=== PATIENT | female | born 1975 | race Two or more races ===

== ENCOUNTER 2016-04-14 12:07 | Emergency (ER) | payer OTHER ==
[2016-04-14] MEDS ORDERED: NS 1,000 ML IV ONE (12:50)
[2016-04-14] MEDS ORDERED: HYDROmorphONE/DILAUDID 1 MG/ML SYR IVP ONE (12:50)
[2016-04-14] MEDS ORDERED: ONDANSETRON 4 MG/2 ML VIAL IVP ONE (12:50)
[2016-04-14 13:26] LABS: % IMMATURE GRANULYOCYTES 0.2 % (0.0-1.1); ABSOLUTE IMMATURE GRANULOCYTES 0.01 10^3/uL (0.00-0.10); ADD DIFF? NO; ADD MORPH? NO; ADD SCAN? NO; ATYPICAL LYMPHOCYTE FLAG 0 (0-99); FRAGMENT RBC FLAG 0 (0-99); HEMATOCRIT 38.8 % (38.0-47.0); LEFT SHIFT FLG 90 (0-99); LIPEMIA HEMOLYSIS FLAG 90 (0-99); MEAN CELL HEMOGLOBIN 31.6 pg (27.9-34.1); MEAN CELL HEMOGLOBIN CONCENTR. 36.1 g/dL (32.4-36.7); MEAN CELL VOLUME 87.6 fL (81.5-99.8); MEAN PLATELET VOLUME 10.6 fL (8.7-11.7); PLATELET CLUMPS FLAG 10 (0-99); PLATELET COUNT 237 10^3/uL (150-400); RED BLOOD CELL COUNT 4.43 10^6/uL (4.18-5.33); RED CELL DISTRIBUTION WIDTH 12.6 % (11.5-15.2)
[2016-04-14 13:44] LABS: ALANINE AMINOTRANSFERASE 31 IU/L (9-52); ALBUMIN 3.5 g/dL (3.5-5.0); ALKALINE PHOSPHATASE 76 IU/L (38-126); ANION GAP 13 mEq/L (8-16); ASPARTATE AMINOTRANSFERASE 21 IU/L (14-46); BILIRUBIN,TOTAL 0.6 mg/dL (0.1-1.4); BILIRUBIN-UNCONJUGATED 0.6 mg/dL (0.0-1.1); CALCIUM 8.4 mg/dL (8.5-10.4); CARBON DIOXIDE 21 mEq/l (22-31); CHLORIDE 107 mEq/L (97-110); CREATININE 0.4 mg/dL (0.6-1.0); GLOMERULAR FILTRATION RATE > 60; GLUCOSE 101 mg/dL (70-100); POTASSIUM 3.5 mEq/L (3.5-5.2); SODIUM 141 mEq/L (134-144); TOTAL PROTEIN 6.9 g/dL (6.3-8.2)
[2016-04-14 14:49] LABS: COLOR YELLOW; LEUKOCYTE ESTERASE,URINE 1+ (NEGATIVE); NITRITE,URINE NEGATIVE (NEGATIVE)
[2016-04-14 14:51] LABS: BACTERIA TRACE /hpf (NONE SEEN); MUCUS TRACE /lpf (NONE-1+); RBC,URINE 50-182 /hpf (0-3)
--- NOTE | 2016-04-14 15:07 | EDPHY ---
H & P Stated Complaint: N/V/D for 1 day Time Seen by Provider: 04/14/16 12:25 HPI/ROS: Chief complaint: Nausea, vomiting and diarrhea with abdominal pain History of present illness: This is a 40-year-old female who presents to the emergency department for evaluation nausea, vomiting and diarrhea with associated abdominal pain. She reports the onset of symptoms this morning. She reports multiple episodes of vomiting and diarrhea described as nonbloody. She reports diffuse abdominal pain. She denies precipitating factors. She denies alleviating factors. She denies other associated signs or symptoms including no fevers, no urinary symptoms. Review of systems: A 10 point review of systems was obtained and other than described above was negative - Personal History LMP (Females 10-55): 22-28 Days Ago Current Tetanus/Diphtheria Vaccine: Unsure Current Tetanus Diphtheria and Acellular Pertussis (TDAP): Unsure - Medical/Surgical History Hx Asthma: No Hx Chronic Respiratory Disease: No Hx Diabetes: No Hx Cardiac Disease: No Hx Renal Disease: No Hx Cirrhosis: No Hx Alcoholism: No Hx HIV/AIDS: No Hx Splenectomy or Spleen Trauma: No Other PMH: hypothyroidism - Social History Smoking Status: Never smoked - Physical Exam Exam: General Appearance: Alert, no distress. Eyes: Pupils equal and round no pallor or injection. ENT, Mouth: Mucous membranes moist. Respiratory: There are no retractions, lungs are clear to auscultation. Cardiovascular: Regular rate and rhythm. Gastrointestinal: Abdomen is soft and non tender, no masses, bowel sounds normal. Genitourinary: No CVA tenderness. Neurological: Alert and oriented. Strength and sensation intact and symmetrical. Skin: Warm and dry, no rashes. Musculoskeletal: Neck is supple non tender. Extremities are symmetrical, full range of motion. Psychiatric: Patient is oriented X 3, there is no agitation. Constitutional: Initial Vital Signs Temperature (C) 36.9 C 04/14/16 12:10 Heart Rate 104 H 04/14/16 12:10 Respiratory Rate 16 04/14/16 12:10 Blood Pressure 138/90 H 04/14/16 12:10 O2 Sat (%) 95 04/14/16 12:10 O2 Delivery Mode Room Air Allergies/Adverse Reactions: No Known Allergies Allergy (Verified 06/05/15 03:04) Home Medications: Medication Instructions Recorded Levothyroxine [Synthroid 100 mcg 100 mcg PO DAILY06 04/11/14 (RX)] Hydrocodone/APAP 5/325 [[facility] 1 - 2 tab PO Q4H PRN #10 tab 06/05/15 5/325 (RX)] Cephalexin [Keflex] 500 mg PO QID 10 Days 04/14/16 Ondansetron Odt [Zofran Odt 4 mg 4 mg PO Q4 #10 tab 04/14/16 (*)] Medical Decision Making - Diagnostics Imaging: CT scan of the abdomen pelvis without evidence of kidney stones, small lesion on left kidney noted ED Course/Re-evaluation: Patient seen under the supervision of my secondary supervising physician Dr. Sara Cabrera. Patient presents to the emergency department with abdominal pain, nausea, vomiting and diarrhea. Patient is nontoxic. Afebrile and vital signs are stable. Laboratory studies largely unremarkable. Urinalysis concerning for a urinary tract infection. CT scan of the abdomen and pelvis without acute findings. Patient has been symptomatically treated with improvement in symptoms. She is started on antibiotics for suspected urinary tract infection. Patient is tolerating oral challenges. She will be discharged home. Home care is discussed. She is asked to follow up with a primary care doctor this week for recheck. Return precautions are given. Patient voiced understanding and agreement with plan. Differential Diagnosis: Included but not limited to gastritis, gastroenteritis, biliary tract disease, pancreatitis, colitis, urinary tract disease, with associated complications - Data Points Laboratory Results: Laboratory Results 04/14/16 13:17 04/14/16 13:17 04/14/16 04/14/16 14:38 13:17 WBC 5.23 10^3/uL (3.80-9.50) RBC 4.43 10^6/uL (4.18-5.33) Hgb 14.0 g/dL (12.6-16.3) Hct 38.8 % (38.0-47.0) MCV 87.6 fL (81.5-99.8) MCH 31.6 pg (27.9-34.1) MCHC 36.1 g/dL (32.4-36.7) RDW 12.6 % (11.5-15.2) Plt Count 237 10^3/uL (150-400) MPV 10.6 fL (8.7-11.7) Neut % (Auto) 86.7 H % (39.3-74.2) Lymph % (Auto) 7.3 L % (15.0-45.0) [place] % (Auto) 5.4 % (4.5-13.0) Eos % (Auto) 0.2 L % (0.6-7.6) Baso % (Auto) 0.2 L % (0.3-1.7) Nucleat RBC Rel Count 0.0 % (0.0-0.2) Absolute Neuts (auto) 4.54 10^3/uL (1.70-6.50) Absolute Lymphs (auto) 0.38 L 10^3/uL (1.00-3.00) Absolute Monos (auto) 0.28 L 10^3/uL (0.30-0.80) Absolute Eos (auto) 0.01 L 10^3/uL (0.03-0.40) Absolute Basos (auto) 0.01 L 10^3/uL (0.02-0.10) Absolute Nucleated RBC 0.00 10^3/uL (0-0.01) Immature Gran % 0.2 % (0.0-1.1) Immature Gran # 0.01 10^3/uL (0.00-0.10) Sodium 141 mEq/L (134-144) Potassium 3.5 mEq/L (3.5-5.2) Chloride 107 mEq/L (97-110) Carbon Dioxide 21 L mEq/l (22-31) Anion Gap 13 mEq/L (8-16) BUN 11 mg/dL (7-23) Creatinine 0.4 L mg/dL (0.6-1.0) Estimated GFR > 60 Glucose 101 H mg/dL (70-100) Calcium 8.4 L mg/dL (8.5-10.4) Total Bilirubin 0.6 mg/dL (0.1-1.4) Conjugated Bilirubin 0.0 mg/dL (0.0-0.5) Unconjugated Bilirubin 0.6 mg/dL (0.0-1.1) AST 21 IU/L (14-46) ALT 31 IU/L (9-52) Alkaline Phosphatase 76 IU/L (38-126) Total Protein 6.9 g/dL (6.3-8.2) Albumin 3.5 g/dL (3.5-5.0) Lipase 60.0 IU/L (23-300) Beta HCG, Qual NEGATIVE Urine Color YELLOW Urine Appearance MODERATELY TURBID Urine pH 6.0 (5.0-7.5) Ur Specific [place] 1.028 (1.002-1.030) Urine Protein NEGATIVE (NEGATIVE) Urine Ketones NEGATIVE (NEGATIVE) Urine Blood 3+ H (NEGATIVE) Urine Nitrate NEGATIVE (NEGATIVE) Urine Bilirubin NEGATIVE (NEGATIVE) Urine Urobilinogen NEGATIVE EU (0.2-1.0) Ur Leukocyte Esterase 1+ H (NEGATIVE) Urine RBC 50-182 H /hpf (0-3) Urine WBC 3-5 H /hpf (0-3) Ur Epithelial Cells 2+ H /lpf (NONE-1+) Urine Bacteria TRACE H /hpf (NONE SEEN) Urine Mucus TRACE /lpf (NONE-1+) Ur Culture Indicated? INDICATED H (NI) Urine Glucose NEGATIVE (NEGATIVE) Medications Given: Discontinued Medications Acetaminophen (Tylenol) 1,000 mg PO EDNOW ONE Stop: 04/14/16 16:42 Last Admin: 04/14/16 16:46 Dose: 1,000 mg Hydromorphone HCl (Dilaudid) 0.5 mg IVP EDNOW ONE Stop: 04/14/16 12:51 Last Admin: 04/14/16 13:20 Dose: 0.5 mg Sodium Chloride (Ns) 1,000 mls @ 0 mls/hr IV ONCE ONE PRN Reason: Wide Open Stop: 04/14/16 12:51 Last Admin: 04/14/16 13:15 Dose: 1,000 mls Ceftriaxone Sodium/Dextrose (Rocephin 1 Gm (Premix)) 50 mls @ 100 mls/hr IV EDNOW ONE PRN Reason: Protocol Stop: 04/14/16 15:47 Last Admin: 04/14/16 16:05 Dose: 50 mls Ondansetron HCl (Zofran) 4 mg IVP EDNOW ONE Stop: 04/14/16 12:51 Last Admin: 04/14/16 13:20 Dose: 4 mg Departure - Departure Disposition: Home, Routine, Self-Care Clinical Impression: UTI (urinary tract infection) Qualifiers: Urinary tract infection type: site unspecified Hematuria presence: with hematuria Qualifier Code: (N39.0) Urinary tract infection, site not specified Condition: Good Instructions: Urinary Tract Infection in Women (ED) Additional Instructions: Follow-up with your primary care doctor this week for recheck Please also follow up with your primary care doctor to arrange a follow-up ultrasound of the lesion seen on your kidney on CT scan Take all antibiotics as prescribed until finished even feeling better If symptoms worsen or new symptoms develop return to the emergency department for recheck - Dot simon dru de seguimiento con garcia doctor esta semana. - Por favor tambien hable con garcia doctor sobre un ultrasonido por la lecion en el priti mostrado en la tomografia - Maddock todo el antibiotico recetado aun si se siente mejor. - Si los sintomas empeoran o si desarrolla nuevos, regrese a la fernando de emergencia. Referrals: [place],. [Primary Care Provider] - As per Instructions [facility] [Outside] - As per Instructions Prescriptions: Cephalexin [Keflex] 500 mg PO QID 10 Days Ondansetron Odt [Zofran Odt 4 mg (*)] 4 mg PO Q4 #10 tab Print Language: Greek
--- NOTE | 2016-04-14 16:32 | CT ---
Unenhanced CT Scan of the Abdomen and Pelvis (Renal Stone Protocol) Clinical History: 40-year-old female with abdominal pain and nausea and vomiting since 1:00 a.m. catina neumann. The patient denies any prior abdominal surgery. On urinalysis, the patient had pyuria and hematuri a. Technique: A multidetector unenhanced helical CT scan was obtained from lung bases inferiorly through the proximal femora, with images reformatted at 5.00 and 1.50 mm increments, and reviewed at a varie ty of window and level settings. Parasagittal and paracoronal reconstructed images were reviewed on w orkstation. The DFOV is 41.3 cm. A dose reduction protocol was used. Comparison Study: None. Findings: Unenhanced CT Scan of the Abdomen: There are some minor dependent changes seen posteriorly. There is no pleural or pericardial effusion. There are no hepatic, pancreatic, splenic, adrenal, renal, or ur eteral calculi. There is an exophytic 9-mm hypodensity off of the posterosuperior left kidney on seri es 3 image 28, with a Hounsfield unit measurement of 11. While this may merely reflect a small simple cyst, this was an unenhanced study and follow-up sonography is recommended. There is no hydronephros is or perinephric fluid. There are some shotty subcentimeter periaortic and aortocaval lymph nodes, n ot pathologically enlarged. There is no ascites or pneumoperitoneum. There is no evidence of a mechan ical bowel obstruction. The abdominal aorta and IVC are normal in caliber. The osseous structures are age-appropriate. Unenhanced CT Scan of the Pelvis: The retrocecal appendix is identified on axial series 4, images 20 4-222, and is normal. The uterus is midline. The urinary bladder is only partially distended. There i s no evidence of distal ureterolithiasis or urinary bladder calculus. There is a small amount of free fluid in the pelvic cul-de-sac. The osseous structures are age-appropriate. Impression: 1. There is no evidence of nephrolithiasis or obstructive uropathy. There is a 9-mm hypodensity on th e posterior aspect of the left kidney, which probably represents a tiny cyst; however, confirmation w ith sonography is suggested. 2. Normal appearance of the appendix. 3. Small amount of free fluid in the pelvic cul-de-sac. Results were discussed with Miquel Blake PA-C. A test result has been communicated to a licensed care provider and documented in [employer], 4:21:24 PM , 04/14/2016, [employer] Message ID [id number]. Attention: This CT examination is specifically designed to evaluate patients who are clinically susp ected of having acute obstructive uropathy. This examination does not use radiographic contrast, and as such, provides only a limited evaluation of the abdomen, pelvis, and retroperitoneum. If there i s further clinical suspicion for pathological conditions other than obstructive uropathy, a complete CT evaluation of the abdomen and pelvis utilizing intravenous, oral, and rectal contrast should be co nsidered.
[2016-04-14] MEDS ORDERED: ACETAMINOPHEN 500 MG TAB ONE (16:39)
[2016-04-14] MEDS ORDERED: ACETAMINOPHEN 500 MG TAB PO ONE (16:41)
[2016-04-14 16:48] VITALS: BP 111/74; PULSE 103; RESP 18; TEMP 100.8; O2SAT 96
== END 2016-04-14 16:48 | disposition home or self-care (01) ==
DX: N39.0 Urinary tract infection, site not specified (principal); B96.89 Other specified bacterial agents as the cause of diseases classified elsewhere
CPT/HCPCS: 96365; J0696; J1170; J2405

== ENCOUNTER 2016-12-28 18:21 | Emergency (ER) | payer SELFPAY ==
[2016-12-28 18:27] VITALS: PULSE 86
--- NOTE | 2016-12-28 18:43 | CPEKG ---
Heart Rate: 84 RR Interval: 714 P-R Interval: 180 QRSD Interval: 88 QT Interval: 356 QTC Interval: 421 P [place]: 13 QRS [place]: 26 T Wave [place]: 10 EKG Severity - NORMAL ECG - EKG Impression: SINUS RHYTHM Electronically Signed By: Fabiola Cagle 28-Dec-2016 21:10:04
--- NOTE | 2016-12-28 18:45 | EDPHY ---
HPI/HX/ROS/PE/MDM Narrative: CHIEF COMPLAINT: Chest pain, nausea, vomiting HISTORY OF PRESENT ILLNESS: The patient is a 41 y/o female who complains of chest pain and vomiting this evening. Around 10:00, 8.5 hours ago, she felt dizzy for about a minute and thought she might faint. When she came home from work she felt very hot. She was eating dinner this evening, she reports feeling soundly on well, her ears got warm, she had chest pain in the left side, nausea, and 1 on an vomited. Family thought she looked pale. She does not feel nauseous now and is comfortable while lying down. There is still mild pain in her chest when she breathes. No history of hypertension diabetes. Denies history of gallbladder problems, DVT, PE, familial history of CAD, or history of smoking. She reports feeling otherwise well prior to the events. No fever, chills, shortness of breath, palpitations, diarrhea, urinary complaints, headache, lightheadedness. Daughter at bedside translated for HPI and physical exam. REVIEW OF SYSTEMS: Aside from elements discussed in the HPI, a comprehensive 10-point review of systems was reviewed and is negative. PAST MEDICAL HISTORY: Hypothyroidism, kidney stone in March that did not pass SOCIAL HISTORY: Daughter at bedside, nonsmoker VITAL SIGNS: Reviewed by me GENERAL: Well-developed, well-nourished, resting comfortably in no respiratory distress. HEENT: Atraumatic. Eyes: No icterus, no injection. Mouth: moist mucous membranes. No erythema or lesions. Neck: supple with no adenopathy. LUNGS: Clear to auscultation bilaterally, no wheezes, rhonchi or rales. CARDIAC: Hypertensive (174/125). Regular rate and rhythm, no rubs, murmurs or gallops. ABDOMEN: Soft, nontender, nondistended, bowel sounds normal. BACK: No CVA tenderness. EXTREMITIES: No trauma. No edema. Range of motion is normal throughout. NEURO: Alert and oriented, grossly nonfocal. SKIN: Warm and dry, no rash. PSYCHIATRIC: Normal mentation, no agitation. Portions of this note were transcribed by a emergency medical technician/driver. I personally performed a history, physical exam, medical decision making, and confirmed accuracy of information the transcribed note. ED Course: The patient is a 41 y/o female who presents for left-sided chest pain and vomiting this evening. She is feeling more comfortable now. 12-LEAD EKG: Please see the full report in [employer]. My interpretation: Normal sinus rhythm with rate of 84. Evaluation emergency department was remarkable for elevated blood pressure on arrival. Laboratory testing was normal. Including a troponin. On re-examination the patient is resting comfortably. Her blood pressure has decreased, on my examination is 153/ 98. She reports feeling well. She is laughing and conversant with her family. Patient's heart score is a 0. I believe she is low risk. Patient was discharged to follow up with her primary care physician as well as with the sales market leader. Return precautions discussed; patient is comfortable with this plan. MDM: After history and physical examination, the differential for symptom complex was considered, including but not limited to, myocardial ischemia, acute coronary syndrome, esophageal reflux, GERD, biliary colic. - Data Points Imaging Results: Imaging Impressions Chest X-Ray 12/28/16 18:48 Impression: There is no acute intrathoracic abnormality identified. Imaging: I viewed and interpreted images myself Laboratory Results: Laboratory Results 12/28/16 18:58 12/28/16 18:58 12/28/16 12/28/16 12/28/16 18:58 18:58 18:58 WBC 6.93 10^3/uL 10^3/uL (3.80-9.50) RBC 4.59 10^6/uL 10^6/uL (4.18-5.33) Hgb 14.3 g/dL g/dL (12.6-16.3) Hct 40.6 % % (38.0-47.0) MCV 88.5 fL fL (81.5-99.8) MCH 31.2 pg pg (27.9-34.1) MCHC 35.2 g/dL g/dL (32.4-36.7) RDW 12.4 % % (11.5-15.2) Plt Count 267 10^3/uL 10^3/uL (150-400) MPV 11.1 fL fL (8.7-11.7) Neut % (Auto) 65.1 % % (39.3-74.2) Lymph % (Auto) 25.7 % % (15.0-45.0) [place] % (Auto) 6.1 % % (4.5-13.0) Eos % (Auto) 2.3 % % (0.6-7.6) Baso % (Auto) 0.4 % % (0.3-1.7) Nucleat RBC Rel Count 0.0 % % (0.0-0.2) Absolute Neuts (auto) 4.51 10^3/uL 10^3/uL (1.70-6.50) Absolute Lymphs (auto) 1.78 10^3/uL 10^3/uL (1.00-3.00) Absolute Monos (auto) 0.42 10^3/uL 10^3/uL (0.30-0.80) Absolute Eos (auto) 0.16 10^3/uL 10^3/uL (0.03-0.40) Absolute Basos (auto) 0.03 10^3/uL 10^3/uL (0.02-0.10) Absolute Nucleated RBC 0.00 10^3/uL 10^3/uL (0-0.01) Immature Gran % 0.4 % % (0.0-1.1) Immature Gran # 0.03 10^3/uL 10^3/uL (0.00-0.10) Sodium 137 mEq/L mEq/L (134-144) Potassium 3.8 mEq/L mEq/L (3.5-5.2) Chloride 102 mEq/L mEq/L (97-110) Carbon Dioxide 26 mEq/l mEq/l (22-31) Anion Gap 9 mEq/L mEq/L (8-16) BUN 16 mg/dL mg/dL (7-23) Creatinine 0.7 mg/dL mg/dL (0.6-1.0) Estimated GFR > 60 Glucose 92 mg/dL mg/dL (70-100) Calcium 9.6 mg/dL mg/dL (8.5-10.4) Total Bilirubin 0.3 mg/dL mg/dL (0.1-1.4) Conjugated Bilirubin 0.1 mg/dL mg/dL (0.0-0.5) Unconjugated Bilirubin 0.2 mg/dL mg/dL (0.0-1.1) AST 24 IU/L IU/L (14-46) ALT 34 IU/L IU/L (9-52) Alkaline Phosphatase 107 IU/L IU/L (38-126) Troponin I < 0.012 ng/mL ng/mL (0.000-0.034) Total Protein 8.2 g/dL g/dL (6.3-8.2) Albumin 4.3 g/dL g/dL (3.5-5.0) Lipase 168 IU/L IU/L (23-300) Beta HCG, Qual NEGATIVE General Time Seen by Provider: 12/28/16 18:30 Initial Vital Signs: Initial Vital Signs Temperature (C) 36.4 C 12/28/16 18:24 Heart Rate 86 12/28/16 18:24 Respiratory Rate 20 12/28/16 18:24 Blood Pressure 174/125 H 12/28/16 18:24 O2 Sat (%) 97 12/28/16 18:24 O2 Delivery Mode Room Air Allergies/Adverse Reactions: No Known Allergies Allergy (Verified 12/28/16 18:23) Home Medications: Medication Instructions Recorded Levothyroxine [Synthroid 100 mcg 100 mcg PO DAILY06 04/11/14 (RX)] Departure - Departure Disposition: Home, Routine, Self-Care Clinical Impression: Atypical chest pain Chest pain Qualifiers: Chest pain type: other chest pain Qualified Code(s): R07.89 - Other chest pain Condition: Good Instructions: Chest Pain (ED) Additional Instructions: Based upon the testing done in the Emergency Department today we see no evidence of a heart attack. We are unable to fully exclude coronary artery disease based upon the testing available in the Emergency Department. For this reason, we would like you to be seen by cardiology and/or your primary care physician for consideration of additional testing within the next 3 days. You also should have your blood pressure recheck. Please contact the sales market leader you have been referred to schedule this appointment as soon as possible. Their offices are typically open from 8:30am-5pm M-F. Please return to the Emergency Department immediately for any recurrent chest pain, difficulty breathing or other concerns. Referrals: Jerman Lindsay MD [Medical Doctor] - As per Instructions [facility],. [Clinic] - As per Instructions Report Scribed for: Fabiola Cagle Report Scribed by: Cristina Ron Date of Report: 12/28/16 Time of Report: 18:32
[2016-12-28 19:12] LABS: % IMMATURE GRANULYOCYTES 0.4 % (0.0-1.1); ABSOLUTE IMMATURE GRANULOCYTES 0.03 10^3/uL (0.00-0.10); ADD DIFF? NO; ADD MORPH? NO; ADD SCAN? NO; ATYPICAL LYMPHOCYTE FLAG 30 (0-99); FRAGMENT RBC FLAG 0 (0-99); HEMATOCRIT 40.6 % (38.0-47.0); HEMOGLOBIN 14.3 g/dL (12.6-16.3); LEFT SHIFT FLG 0 (0-99); LIPEMIA HEMOLYSIS FLAG 90 (0-99); MEAN CELL HEMOGLOBIN 31.2 pg (27.9-34.1); MEAN CELL HEMOGLOBIN CONCENTR. 35.2 g/dL (32.4-36.7); MEAN CELL VOLUME 88.5 fL (81.5-99.8); MEAN PLATELET VOLUME 11.1 fL (8.7-11.7); PLATELET CLUMPS FLAG 0 (0-99); PLATELET COUNT 267 10^3/uL (150-400); RED BLOOD CELL COUNT 4.59 10^6/uL (4.18-5.33); RED CELL DISTRIBUTION WIDTH 12.4 % (11.5-15.2)
[2016-12-28 19:23] LABS: ALANINE AMINOTRANSFERASE 34 IU/L (9-52); ALBUMIN 4.3 g/dL (3.5-5.0); ALKALINE PHOSPHATASE 107 IU/L (38-126); ANION GAP 9 mEq/L (8-16); ASPARTATE AMINOTRANSFERASE 24 IU/L (14-46); BILIRUBIN,TOTAL 0.3 mg/dL (0.1-1.4); BILIRUBIN-CONJUGATED 0.1 mg/dL (0.0-0.5); BILIRUBIN-UNCONJUGATED 0.2 mg/dL (0.0-1.1); CALCIUM 9.6 mg/dL (8.5-10.4); CARBON DIOXIDE 26 mEq/l (22-31); CHLORIDE 102 mEq/L (97-110); CREATININE 0.7 mg/dL (0.6-1.0); GLOMERULAR FILTRATION RATE > 60; GLUCOSE 92 mg/dL (70-100); POTASSIUM 3.8 mEq/L (3.5-5.2); SODIUM 137 mEq/L (134-144); TOTAL PROTEIN 8.2 g/dL (6.3-8.2)
[2016-12-28 19:34] LABS: TROPONIN I < 0.012 ng/mL (0.000-0.034)
[2016-12-28 20:29] VITALS: BP 159/105; RESP 16; TEMP 97.9; O2SAT 96
== END 2016-12-28 20:29 | disposition home or self-care (01) ==
DX: R07.89 Other chest pain (principal)

== ENCOUNTER 2017-04-11 18:08 | Emergency (ER) | payer OTHER ==
--- NOTE | 2017-04-11 18:40 | EDPHY ---
H & P Time Seen by Provider: 04/11/17 18:20 HPI/ROS: Chief complaint. Nausea vomiting HPI. 41-year-old female presents with 1 day history of nausea vomiting and 1 episode of diarrhea. She has dysuria and left flank pain. She has had similar symptoms about 1 year ago when she had pyelonephritis. She has no chest pain or shortness of breath. No fever. She complains of left flank pain. ROS Constitutional. no fever/chills, no weakness Eyes. no problems with vision ENT. no sore throat, no nasal drainage Cardiovascular. no chest pain Respiratory. no shortness of breath, no cough Abdominal. Left flank pain with nausea vomiting . Painful urination MS. no calf pain/swelling, no neck/back pain, no joint pain Skin. no rash Lymph. no swollen glands Neuro. no headache, no dizziness, no difficulty walking or with speech Past Medical/Surgical History: Hypothyroid Social History: , nonsmoker, no alcohol Smoking Status: Never smoked Physical Exam: General Appearance: Alert pleasant well-developed female mild to moderate distress vital signs are stable Eyes: Pupils equal and round no pallor or injection. ENT, Mouth: Mucous membranes are moist. Respiratory: There are no retractions, lungs are clear to auscultation. Cardiovascular: Regular rate and rhythm. Gastrointestinal: Abdomen is soft tender in the left flank area. No masses. No organomegaly. Normal bowel sounds Neurological: Awake and alert, sensory and motor exams grossly normal. Skin: Warm and dry, no rashes. Musculoskeletal: Neck is supple nontender. Extremities symmetrical, full range of motion. Psychiatric: Patient is oriented X 3, there is no agitation. Constitutional: Initial Vital Signs Temperature (C) 36.7 C 04/11/17 18:12 Heart Rate 96 04/11/17 18:12 Respiratory Rate 18 04/11/17 18:12 Blood Pressure 132/88 H 04/11/17 18:12 O2 Sat (%) 97 04/11/17 18:12 O2 Delivery Mode Room Air Allergies/Adverse Reactions: No Known Allergies Allergy (Verified 12/28/16 18:23) Home Medications: Medication Instructions Recorded Levothyroxine [Synthroid 100 mcg 100 mcg PO DAILY06 04/11/14 (RX)] Cephalexin [Keflex (*)] 500 mg PO TID #21 cap 01/12/18 Medical Decision Making - Diagnostics Imaging Results: CT abdomen and pelvis without IV contrast shows no evidence for kidney stone Procedures: IV normal saline. Morphine for pain. Zofran for nausea ED Course/Re-evaluation: Re-examination at 8:10 p.m. patient is stable. Her pain is well controlled. She and I discussed laboratory evaluation and recommendation for CT. She expresses understanding and agreement Differential Diagnosis: I considered pyelonephritis, urinary tract infection, kidney stone - Data Points Laboratory Results: Laboratory Results 04/11/17 19:16 04/11/17 18:40 04/11/17 04/11/17 04/11/17 19:16 18:49 18:40 WBC 8.82 10^3/uL 10^3/uL (3.80-9.50) RBC 4.54 10^6/uL 10^6/uL (4.18-5.33) Hgb 14.2 g/dL g/dL (12.6-16.3) Hct 40.1 % % (38.0-47.0) MCV 88.3 fL fL (81.5-99.8) MCH 31.3 pg pg (27.9-34.1) MCHC 35.4 g/dL g/dL (32.4-36.7) RDW 12.4 % % (11.5-15.2) Plt Count 239 10^3/uL 10^3/uL (150-400) MPV 10.6 fL fL (8.7-11.7) Neut % (Auto) 88.2 % H % (39.3-74.2) Lymph % (Auto) 6.6 % L % (15.0-45.0) [place] % (Auto) 4.0 % L % (4.5-13.0) Eos % (Auto) 0.7 % % (0.6-7.6) Baso % (Auto) 0.2 % L % (0.3-1.7) Nucleat RBC Rel Count 0.0 % % (0.0-0.2) Absolute Neuts (auto) 7.78 10^3/uL H 10^3/uL (1.70-6.50) Absolute Lymphs (auto) 0.58 10^3/uL L 10^3/uL (1.00-3.00) Absolute Monos (auto) 0.35 10^3/uL 10^3/uL (0.30-0.80) Absolute Eos (auto) 0.06 10^3/uL 10^3/uL (0.03-0.40) Absolute Basos (auto) 0.02 10^3/uL 10^3/uL (0.02-0.10) Absolute Nucleated RBC 0.00 10^3/uL 10^3/uL (0-0.01) Immature Gran % 0.3 % % (0.0-1.1) Immature Gran # 0.03 10^3/uL 10^3/uL (0.00-0.10) Sodium Potassium Chloride Carbon Dioxide Anion Gap BUN Creatinine Estimated GFR Glucose Calcium Beta HCG, Qual NEGATIVE Urine Color Urine Appearance Urine pH Ur Specific [place] Urine Protein Urine Ketones Urine Blood Urine Nitrate Urine Bilirubin Urine Urobilinogen Ur Leukocyte Esterase Urine RBC Cancelled Urine WBC Cancelled Ur Epithelial Cells Cancelled Ur Renal Epithelial Cell Cancelled Urine Crystals Cancelled Ammonium Urate Crystals Cancelled Calcium Carbonate Cryst Cancelled Calcium Phosphate Cryst Cancelled Calcium Oxalate Crystal Cancelled Leucine Crystals Cancelled Cystine Crystals Cancelled Uric Acid Crystals Cancelled Triple Phos Crystals Cancelled Sulfonamide Crystals Cancelled Cholesterol Crystals Cancelled Tyrosine Crystals Cancelled Bilirubin Crystals Cancelled Amorphous Sediment Cancelled Urine Bacteria Cancelled Epithelial Casts Cancelled Fatty Casts Cancelled Hyaline Casts Cancelled Granular Casts Cancelled Waxy Casts Cancelled Broad Casts Cancelled RBC Casts Cancelled WBC Casts Cancelled Urine Mucus Cancelled Urine Trichomonas Cancelled Urine Yeast Cancelled Urine Sperm Cancelled Ur Oval Fat Bodies Cancelled Ur Free Fat Droplets Cancelled Urine Glucose Urine Comment Cancelled 04/11/17 04/11/17 04/11/17 18:40 18:40 16:40 WBC REJ RBC TNP Hgb TNP Hct TNP MCV TNP MCH TNP MCHC TNP RDW TNP Plt Count TNP MPV TNP Neut % (Auto) TNP Lymph % (Auto) TNP [place] % (Auto) TNP Eos % (Auto) TNP Baso % (Auto) TNP Nucleat RBC Rel Count TNP Absolute Neuts (auto) TNP Absolute Lymphs (auto) TNP Absolute Monos (auto) TNP Absolute Eos (auto) TNP Absolute Basos (auto) TNP Absolute Nucleated RBC TNP Immature Gran % TNP Immature Gran # TNP Sodium 139 mEq/L mEq/L (135-145) Potassium 4.3 mEq/L mEq/L (3.5-5.2) Chloride 106 mEq/L mEq/L (97-110) Carbon Dioxide 20 mEq/l L mEq/l (22-31) Anion Gap 13 mEq/L mEq/L (8-16) BUN 11 mg/dL mg/dL (7-23) Creatinine 0.5 mg/dL L mg/dL (0.6-1.0) Estimated GFR > 60 Glucose 92 mg/dL mg/dL (70-100) Calcium 9.4 mg/dL mg/dL (8.5-10.4) Beta HCG, Qual Urine Color YELLOW Urine Appearance MODERATELY TURBID Urine pH 5.0 (5.0-7.5) Ur Specific [place] 1.014 (1.002-1.030) Urine Protein NEGATIVE (NEGATIVE) Urine Ketones NEGATIVE (NEGATIVE) Urine Blood 3+ H (NEGATIVE) Urine Nitrate NEGATIVE (NEGATIVE) Urine Bilirubin NEGATIVE (NEGATIVE) Urine Urobilinogen NEGATIVE EU EU (0.2-1.0) Ur Leukocyte Esterase 2+ H (NEGATIVE) Urine RBC 10-15 /hpf H /hpf (0-3) Urine WBC 3-5 /hpf H /hpf (0-3) Ur Epithelial Cells 4+ /lpf H /lpf (NONE-1+) Ur Renal Epithelial Cell Urine Crystals Ammonium Urate Crystals Calcium Carbonate Cryst Calcium Phosphate Cryst Calcium Oxalate Crystal Leucine Crystals Cystine Crystals Uric Acid Crystals Triple Phos Crystals Sulfonamide Crystals Cholesterol Crystals Tyrosine Crystals Bilirubin Crystals Amorphous Sediment Urine Bacteria TRACE /hpf H /hpf (NONE SEEN) Epithelial Casts Fatty Casts Hyaline Casts Granular Casts Waxy Casts Broad Casts RBC Casts WBC Casts Urine Mucus TRACE /lpf /lpf (NONE-1+) Urine Trichomonas Urine Yeast Urine Sperm Ur Oval Fat Bodies Ur Free Fat Droplets Urine Glucose NEGATIVE (NEGATIVE) Urine Comment Medications Given: Discontinued Medications Sodium Chloride (Ns) 1,000 mls @ 0 mls/hr IV EDNOW ONE; Wide Open PRN Reason: Protocol Stop: 04/11/17 18:49 Last Admin: 04/11/17 19:04 Dose: 1,000 mls Morphine Sulfate (Morphine) 4 mg IVP EDNOW ONE Stop: 04/11/17 18:49 Last Admin: 04/11/17 19:04 Dose: 4 mg Ondansetron HCl (Zofran) 4 mg IVP EDNOW ONE Stop: 04/11/17 18:49 Last Admin: 04/11/17 19:04 Dose: 4 mg Departure - Departure Disposition: Home, Routine, Self-Care Clinical Impression: Acute pyelonephritis Condition: Good Instructions: Kidney Infection (ED) Additional Instructions: Drink plenty of fluids and stay hydrated. Ibuprofen 600 mg every 6 hr for discomfort. Hydrocodone in addition 1 pill every 4-6 hours for discomfort. Cephalexin is antibiotic. Return for worsening symptoms. Recheck in 2 days if not improved Referrals: NONE *PRIMARY CARE P,. [Primary Care Provider] - As per Instructions [facility] [Outside] - 2-3 days, if not improved Prescriptions: Cephalexin [Keflex (*)] 500 mg PO TID #21 cap
[2017-04-11] MEDS ORDERED: NS 1,000 ML IV ONE (18:48)
[2017-04-11] MEDS ORDERED: ONDANSETRON 4 MG/2 ML VIAL IVP ONE (18:48)
[2017-04-11 19:22] LABS: PLATELET COUNT 239 10^3/uL (150-400)
[2017-04-11] MEDS ORDERED: HYDROCOD/APAP 5/325 PREPACK#6 BTL TAKEHOME ONE (21:35)
[2017-04-11] MEDS ORDERED: CEPHALEXIN 500MG PREPACK#4 BTL TAKEHOME ONE (21:35)
[2017-04-11 22:10] VITALS: BP 137/87; PULSE 87; RESP 20; TEMP 98.2; O2SAT 100
== END 2017-04-11 22:10 | disposition home or self-care (01) ==
DX: N10 Acute pyelonephritis (principal); B96.89 Other specified bacterial agents as the cause of diseases classified elsewhere; E86.9 Volume depletion, unspecified
CPT/HCPCS: 96374; J2405

== ENCOUNTER 2018-01-08 19:27 | Emergency (ER) | payer MEDICAID, OTHER ==
[2018-01-08] MEDS ORDERED: NS 1,000 ML IV ONE (19:43)
[2018-01-08] MEDS ORDERED: HYDROmorphONE/DILAUDID 2 MG/ML INJ IVP ONE (19:53)
[2018-01-08] MEDS ORDERED: ONDANSETRON 4 MG/2 ML VIAL IVP ONE (19:53)
--- NOTE | 2018-01-08 20:01 | EDPHY ---
H & P Time Seen by Provider: 01/08/18 19:42 HPI/ROS: HPI Nausea, left-sided abdominal pain. 42-year-old female by private vehicle with and daughter. This patient reports that since 6:00 a.m. She has had pain in her left mid abdomen and upper abdomen with radiation to the left flank. She describes this as a burning and aching sensation. She has had associated nausea but no vomiting. She also reports feeling chilled. She denies any diarrhea. No bloody or melenic stool. She denies any urinary complaints or gross hematuria. Last meal was at 11:00 a.m.. No prior abdominal surgical history. No ill contacts. No foreign travel. No change in diet. History obtained with dividing machine operator. ROS: Constitutional: No fever, no chills. No weakness. Eyes: No discharge. No changes in vision. ENT: No sore throat. No nasal congestion or rhinorrhea. Respiratory: No cough. No shortness of breath. Cardiac: No chest pain, no palpitations. Gastrointestinal: As above, no vomiting, no diarrhea. Genitourinary: No hematuria. No dysuria or increased frequency with urination. Musculoskeletal: No back pain. No neck pain. No myalgias or arthralgias. Skin: No rashes. Neurological: No headache. No focal weakness or altered sensation. Past medical history: Hypothyroidism. Social history: Nonsmoker. No alcohol. Here with her family. Physical Exam: General Appearance: Alert, she appears uncomfortable but not in distress. This patient is responding to questions appropriately and in full sentences. This patient appears well-hydrated and well-nourished. Eyes: Pupils equal and round no pallor or injection. No lid edema, erythema or injection. Respiratory: There are no retractions, lungs are clear to auscultation with good air movement bilaterally. Cardiovascular: Regular rate and rhythm. No murmur. Gastrointestinal: Abdomen is soft with vague left-sided mid abdominal tenderness on palpation, no masses, bowel sounds normal. No focal tenderness at McBurney's point. No Almanza sign. Neurological: Motor sensory function is grossly intact. Cranial nerves are normal. Gait is normal. Skin: Warm and dry, no rashes. Musculoskeletal: Neck is supple and nontender. No pain on flexion of the neck. She does have mild left-sided CVA tenderness on palpation. Extremities are symmetrical. All joints range without pain or impingement. Psychiatric: No agitation. No depression. Database: EKG: Imaging: CT abdomen and pelvis without contrast: The appendix is well visualized and is normal. There is no evidence of perinephric stranding or other associated inflammatory changes regarding the left kidney. She does have some constipation. This study is otherwise unremarkable. Results were discussed with staff radiologist Dr. Rio Valles. Procedures: Emergency department course: Triage vital signs reviewed. She is mildly hypertensive, and borderline tachycardic at 96. Triage vital signs otherwise normal. She is afebrile. IV was placed. She was started on IV normal saline with 1 L to be given over the next hour. She will be given 4 mg of IV Zofran for nausea and 0.5 mg of IV hydromorphone for pain initially. This will be repeated if needed. CT abdomen and pelvis without contrast will be obtained to evaluate for ureterolithiasis. Patient's presentation is consistent with constipation, or pyelonephritis verses ureterolithiasis. 9:00 p.m., the patient was re-evaluated. She is resting comfortably at this time. Results of her emergency department workup and CT scan discussed with her and family. Her presentation is consistent with a mild colitis secondary to a food-borne illness or viral syndrome. She feels comfortable going home at this time and I feel she is safe for discharge. Follow-up and return to emergency department precautions have been discussed with her and family. All of their questions were answered. All communication was with a dividing machine operator. She was discharged from the emergency department in good condition. Differential Diagnosis: The differential diagnosis on this patient includes but is not limited to constipation, pyelonephritis, ureterolithiasis, colitis, viral syndrome, food- borne illness. Pneumonia, aortic dissection unlikely. This represents a partial list of diagnoses considered. These considerations are based on history , physical exam, past history, reassessment and diagnostic testing. Smoking Status: Never smoked Constitutional: Initial Vital Signs Temperature (C) 36.6 C 01/08/18 19:32 Heart Rate 96 01/08/18 19:32 Respiratory Rate 16 01/08/18 19:32 Blood Pressure 151/95 H 01/08/18 19:32 O2 Sat (%) 99 01/08/18 19:32 O2 Delivery Mode Room Air Allergies/Adverse Reactions: No Known Allergies Allergy (Verified 12/28/16 18:23) Home Medications: Medication Instructions Recorded Levothyroxine [Synthroid 100 mcg 100 mcg PO DAILY06 04/11/14 (RX)] Cephalexin [Keflex (*)] 500 mg PO TID #21 cap 04/11/17 Ondansetron Odt [Zofran Odt 4 mg 4 mg PO Q4PRN PRN #10 tab 01/08/18 (*)] Medical Decision Making - Data Points Laboratory Results: Laboratory Results 01/08/18 20:00 01/08/18 20:00 Medications Given: Discontinued Medications Hydromorphone HCl (Dilaudid) 0.5 mg IVP EDNOW ONE Stop: 01/08/18 19:54 Last Admin: 01/08/18 20:03 Dose: 0.5 mg Sodium Chloride (Ns) 1,000 mls @ 0 mls/hr IV EDNOW ONE; Wide Open PRN Reason: Protocol Stop: 01/08/18 19:44 Last Admin: 01/08/18 20:02 Dose: 1,000 mls Ondansetron HCl (Zofran) 4 mg IVP EDNOW ONE Stop: 01/08/18 19:54 Last Admin: 01/08/18 20:03 Dose: 4 mg Departure - Departure Disposition: Home, Routine, Self-Care Clinical Impression: Abdominal pain, Left flank pain Condition: Good Instructions: Acute Abdominal Pain (ED) Additional Instructions: Read and follow provided instructions. Follow-up with your primary care physician tomorrow if possible for re- evaluation. Otherwise on Friday. Take medication as prescribed for nausea. Ibuprofen dosin mg every 6 hours with meals for the next 3 days only. Take only as needed for pain. Return to the emergency department for worsening pain, vomiting, fever, bloody stool or other serious concerns. Kenneth y sigue las instrucciones proveidas. Dot seguimiento con garcia doctor primario maniana para simon reevaluacion. De lo contrario el es. [place] el medicamento para la nausea feliberto se le rowley recetado. Ibuprofen 600 mg cada 6 horas con comida por los proximos 3 butler solamente. A feliberto lo necesite para dolor. Regrese a la fernando de emergencia si el dolor empeora, vomito, fiebre, heather en el escremento o preocupaciones serias. Referrals: NONE *PRIMARY CARE P,. [Primary Care Provider] - As per Instructions Prescriptions: Ondansetron Odt [Zofran Odt 4 mg (*)] 4 mg PO Q4PRN PRN #10 tab PRN Reason: For Nausea & Vomiting Print Language: [place]
[2018-01-08 20:06] LABS: PLATELET COUNT 251 10^3/uL (150-400)
[2018-01-08 21:29] VITALS: BP 161/100
== END 2018-01-08 21:34 | disposition home or self-care (01) ==
DX: R10.32 Left lower quadrant pain (principal); E86.9 Volume depletion, unspecified; K59.00 Constipation, unspecified
CPT/HCPCS: 96374; J1170; J2405